=== PATIENT | male | born 1990 | race Caucasian/White ===

== ENCOUNTER → 2018-04-04 | Day surgery (SDC) | payer BC ==
[~2018-04-04] MED LIST: CIPRO 500MG TA500 MG PO; ZOFRAN 4MG T4 MG/TAB PO
== END ==
LOC: SDCO 12:53
DX: R10.13 Epigastric pain (principal); K59.09 Other constipation; R19.7 Diarrhea, unspecified; Z86.19 Personal history of other infectious and parasitic diseases; J45.909 Unspecified asthma, uncomplicated
CPT/HCPCS: J2250; J3010